=== PATIENT | male | born 1960 | race Caucasian/White ===

== ENCOUNTER 2020-05-26 15:59 | Outpatient (REF) | payer OTHER, SELFPAY ==
[2020-05-26 21:00] LABS: Glucose 78 mg/dL (74-106)
[2020-06-10 16:50] LABS: Hepatitis C Ab w Rflx HCV PCR Negative (Negative)
== END 2020-05-26 16:19 ==
LOC: NCHCN 15:59
PROVIDERS: PCP Internal Medicine; Visit Provider Internal Medicine
DX: Z00.00 Encounter for general adult medical examination without abnormal findings (principal); Z13.1 Encounter for screening for diabetes mellitus; Z11.59 Encounter for screening for other viral diseases
CPT/HCPCS: 82947; 86803

== ENCOUNTER 2021-09-10 15:13 | Outpatient (REF) | payer OTHER, SELFPAY ==
[2021-09-13 10:30] LABS: HBs Antibody, Quant <3.1 mIU/mL (See Note); Hepatitis B Surface Ab Negative (See Note)
[2021-09-13 11:15] LABS: Measles IgG Antibody Negative (See Note)
[2021-09-13 11:18] LABS: Mumps Antibody IgG Positive (See Note)
[2021-09-13 11:20] LABS: Rubella IgG Ab (UVM) Positive (See Note)
[2021-09-13 11:54] LABS: Hep A Total Ab w Rflx IgM Negative (Negative)
== END 2021-09-10 15:14 | disposition home or self-care (01) ==
LOC: NCHCN 15:13
PROVIDERS: PCP Internal Medicine; Visit Provider Nurse Practitioner Family
DX: Z00.00 Encounter for general adult medical examination without abnormal findings (principal)
CPT/HCPCS: 86706; 86709; 86735; 86762; 86765

== ENCOUNTER 2022-07-14 09:20 | Outpatient (CLI) | payer OTHER, SELFPAY ==
--- NOTE | 2022-07-14 10:40 | DI.RAD_ITS ---
Exam(s) XR SHOULDER LT COMPLETE 2+V EXAM: XR SHOULDER LT COMPLETE 2+V CLINICAL HISTORY: LT SHOULDER JOINT PAIN M25.512. TECHNIQUE: 2D digital imaging was performed. COMPARISON: No exams were available for comparison FINDINGS: Four views: No evidence of fracture or dislocation or abnormal soft tissue calcifications. Subacromial space is not diminished. There are no obvious degenerative changes in the glenohumeral and AC joints. Bone d ensity normal. No osseous lesions. No os acromiale. Ipsilateral clavicle intact. IMPRESSION: No significant osseous findings left shoulder. DATA REPOSITORY: RADIATION DOSE DELIVERED:
== END 2022-07-14 09:40 ==
LOC: DI 09:22
PROVIDERS: PCP Internal Medicine; Visit Provider Family Medicine
DX: M25.512 Pain in left shoulder (principal)
CPT/HCPCS: 73030

== ENCOUNTER 2022-11-08 09:35 | Outpatient (REF) | payer OTHER, SELFPAY ==
--- OUTSIDE RECORDS SUMMARY | 2022-11-08 09:40 | XMS_ITS | Continuity of Care Document ---
Author Name Unknown Organization [facility] Address [address] [place] [address] Care Team Providers Care Slab Polisher Name Role Phone Tom Molina Primary Care Physician Encounter [facility] NBR [id number] Date(s): 10/11/22 - 10/11/22 [facility] [address] [place] [address]- [place] Discharge Disposition: Home Allergies, Adverse Reactions, Alerts Substance Reaction Severity Status penicillin Unknown Moderate Active iodine Unknown Moderate Active PDM GG Unknown Moderate Active Mold Unknown Moderate Active Dust Unknown Moderate Active Assessment and Plan Future Appointments Problem List No Known Problems Social History Social History Type Response Tobacco Never tobacco user T obacco Use:. Sex Male Patient Care team information Care Team Personnel Name: Tom Molina Position: No Access Member Role: Primary Care Physician Address: Address: [address] Care Team Related Persons Name: SANDY JASON Address: Home [address] [place], [place] [id number] Name: SANDY JASON Address: Home [address] [place], [place] [id number]
--- OUTSIDE RECORDS SUMMARY | 2022-11-08 09:40 | XMS_ITS | Continuity of Care Document ---
Author Name Unknown Organization [facility] Address [address] [place] [address] Care Team Providers Care Pantograph Machine Set Up Operator Name Role Phone Marcrosemary Tom Hargrove Primary Care Physician Encounter [facility] FIN NBR [id number] Date(s): 09/29/22 - 09/29/22 [facility] [address] [place], [place] [email or web address] Encounter Diagnosis Left carpal tunnel syndrome(Discharge Diagnosis) - 09/29/22 Cubital tunnel syndrome on left(Discharge Diagnosis) - 09/29/22 Discharge Disposition: Home or Self Care Attending Physician: Oleksandr Will MD Allergies, Adverse Reactions, Alerts Substance Reaction Severity Status penicillin Unknown Moderate Active iodine Unknown Moderate Active PDM GG Unknown Moderate Active Mold Unknown Moderate Active Dust Unknown Moderate Active Functional Status 09/29/22 Other exposure to Infectious Disease Non e Medications ibuprofen 200 mg oral tablet QID, 1 Unknown, 0 Refill(s) Start Date: 09/29/22 Status: Ordered Motrin IB 200 mg oral capsule QID, 1 Unknown, 0 Refill(s) Start Date: 09/29/22 Status: Ordered Problem List Condition Confirmation Course Effective Dates Status Health St [facility] Informant Carpal tunnel syndrome Confirmed Active Vital Signs Most recent to oldest [Reference Range]: 1 Peripheral Pulse Rate [60-100 bpm] 68 bp m (09/29/22 1:27 PM) Blood Pressure [90-140/60-90 mmHg] 148/7 2mmHg *HI* (09/29/22 1:27 PM) Weight 77.11 kg (09/29/22 1:27 PM) Weight Measured (lbs) 169.998 lb (09/29/22 1:27 PM) Height 175.25 cm (09/29/22 1:27 PM) Height/Length Measured (inches) 69 inch (09/29/22 1:27 PM) BSA Measured 1.94 m2 (09/29/22 1:27 PM) Body Mass Index 25.11 kg/m2 (09/29/22 1:27 PM) Social History Social History Type Response Tobacco Never tobacco user T obacco Use:. Sex Male Hospital Discharge Instructions Follow Up Care 08/30/2022 11:37:41 With:Surgery Address: When: Unknown Physician Outpatient Note * Oleksandr Will MD: PERFORM Event Display: Office Clinic Note Physician Authored Date: [id number] BRITTANY JASON [place] :1960 Age:61 years Sex:Male Visit Date:09/29/2022 Primary Care Physician: Tom Molina Chief Complaint LEFT ARM PAIN History of Present Illness Please send a copy this note to Oriana Reese APRN. ?? 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 ??He is seen today for the evaluation of left hand numbness and tingling involving the radial 3 digits greater than the ulnar 2 digits.?? He has also dealt with??finger stiffness and pain when his hand is numb.?? He has??increased symptoms with cold weather. ??He has tried a wrist brace??which he has not found to be especially helpful. ??He has been performing exercises without relief. ??He states that his symptoms have progressed to the point that at times it will interfere with fine dexterity??and increment manager strength. ??He states that driving or using his tractor very much exacerbates his symptoms.?? His hand has beenwaking him at night. ??He has not found anti-inflammatories to be helpful for this.?? Of note, the patient is status post right wrist carpal tunnel release in 2014 with complete resolution of his symptoms. Review of Systems Review of systems is significant for??congestion, otitis, a history of tobacco use,??hyperlipidemia, arthralgias, skin lesions, and left upper extremity numbness and tingling. Physical Exam Vitals & Measurements HR:??68??(Peripheral)?? BP:??148/72?? SpO2:??98%?? HT:??175.25??cm?? WT:??77.11??kg?? BMI:??25.11?? Pain Score:??3?? BSA:??1.94?? Left upper extremity demonstrates decreased sensation to light touch over the radial 3 digits of the hand. ??No significant evidence of thenar or hypothenar eminence atrophy is??present.?? Range of motion of the wrist and hand is full and painless. ??Phalen's test and compression test are positive??and reproduce numbness and tingling to the radial 3 digits of the hand. ?? The patient's left elbow demonstrates no evidence of swelling or effusion. ??Range of motion of the elbow is full and painless. ??No evidence of ulnar nerve instability is present on terminal flexion.?? Tinel's sign is intermittently positive??about the cubital tunnel. ??There is no tenderness ab out the cubital tunnel.?? Flexion test is positive after approximately 30 seconds. Assessment/Plan 1.??Left carpal tunnel syndrome??G56.02 2.??Cubital tunnel syndrome on left??G56.22 The patient demonstrates evidence of left upper extremity numbness and tingling??secondary to moderate cubital tunnel syndrome and mild carpal tunnel syndrome in the setting of likely tenosynovitis that is accounting for the pain and aching about the wrist.?? The treatment options were discussed with the patient who has undergone a nonoperative course without relief. ??He??states that??despite the EMG findings of the carpal tunnel syndrome being mild in the cubital tunnel syndrome being moderate, the numbness, tingling, and pain that radiates to his radial 3 digits is much more problematic??and affects his activities more.?? The patient opted to proceed with surgical management. ??The procedure of left wrist carpal tunnel release with tenosynovectomy, and left cubital tunnel release with possible ulnar nerve transposition was described in detail to the patient as well as the associated risks, benefits, alternatives, possible complications, and postoperative course. ??The patient verbalized understanding and all questions were answered. ?? We went over use of narcotics postoperatively. ??We will use the smallest dose for the shortest period of time for their acute postoperative pain only. ??This will be in addition to icing, Tylenol, physical therapy, and bracing. ??We will obtain consent and do a risk assessment tool. ??We will alsoneed to check the PDMP as needed. ?? I personally reviewed the patient's referral, outside consultation notes, previous radiographic images and results, and relevant tests. ?? Thank you for the courtesy of this referral. Follow Up Instructions With When Contact Information Surgery Additional Instructions: Problem List/Past Medical History Ongoing Carpal tunnel syndrome Historical No qualifying data Medications ibuprofen 200 mg oral tablet, QID Motrin IB 200 mg oral capsule, QID Allergies Dust??(Unknown) Mold??(Unknown) PDM GG??(Unknown) iodine??(Unknown) penicillin??(Unknown) Social History Electronic Cigarette/Vaping Electronic Cigarette Use: Never. Tobacco Never tobacco user Tobacco Use:. Diagnostic Results Diagnostic Study Interpretation: EMG of the patient's left upper extremity performed on 08/08/[address] Priti Hubbard??demonstrates??moderate??cubital tunnel syndrome at the elbow and mild carpal tunnel syndrome at the wrist. Electronically Signed on 09/29/22 02:11 PM Oleksandr Will MD Patient Care team information Care Team Personnel Name: Tom Molina Position: No Access Member Role: Primary Care Physician Address: Address: [address] [address]- Care Team Related Persons Name: SANDY JASON Address: Home [address] [place], [place] [id number]
--- OUTSIDE RECORDS SUMMARY | 2022-11-08 09:40 | XMS_ITS | Continuity of Care Document ---
Author Name Unknown Organization [facility] Address [address] [place] [address] Care Team Providers Care Holter Scanning Technician Name Role Phone ALISSABeena JULIA Hargrove Primary Care Physician Encounter [facility] NBR [id number] Date(s): 11/03/22 - 11/03/22 [facility] [address] [place], [place] [address] Encounter Diagnosis Cubital tunnel syndrome on left(Discharge Diagnosis) - 11/03/22 Left carpal tunnel syndrome(Discharge Diagnosis) - 11/03/22 Discharge Disposition: Home or Self Care Attending Physician: NORRIS Avelar Allergies, Adverse Reactions, Alerts Substance Reaction Severity Status penicillin 1 Moderate Active shellfish Stomach upset Mild Active iodine Rash Moderate Active PDM GG Unknown Moderate Active Mold Unknown Moderate Active Dust Unknown Moderate Active 1showed up on allergy test Assessment and Plan Future Appointments Functional Status 11/03/22 Other exposure to Infectious Disease Non e Medications cyclobenzaprine 5 mg oral tablet 20 EA, 0 Refill(s) Start Date: 11/03/22 Status: Ordered oxyCODONE 5 mg oral tablet 20 EA, 0 Refill(s) Start Date: 11/03/22 Status: Ordered Phenergan 25 mg oral tablet 5 EA, 0 Refill(s) Start Date: 11/03/22 Status: Ordered Problem List Condition Confirmation Course Effective Dates Status Health St [facility] Informant GERD - Gastro-esophageal reflux disease Confirmed Active Numbness 1 Confirmed Active Serous otitis media Confirmed Active Tinnitus Confirmed Active 1left hand Procedures Procedure Date Related Diagnosis Body Site Status Carpal Tunnel Release (Left) 1 10/26/22 Completed Arthroscopy of shoulder C ompleted Carpal tunnel release Com pleted Cataract surgery of both eyes Completed Procedure on wound 2 Comp leted 1auto-populated from documented surgical case 2farm accident right hip and bilat leg wound repair also R arm fx Vital Signs Most recent to oldest [Reference Range]: 1 Peripheral Pulse Rate [60-100 bpm] 65 bp m (11/03/22 9:10 AM) Blood Pressure [90-140/60-90 mmHg] 130/7 0mmHg (11/03/22 9:10 AM) Weight 77.11 kg (11/03/22 9:10 AM) Weight Measured (lbs) 169.998 lb (11/03/22 9:10 AM) Height 172.72 cm (11/03/22 9:10 AM) Height/Length Measured (inches) 68 inch (11/03/22 9:10 AM) BSA Measured 1.92 m2 (11/03/22 9:10 AM) Body Mass Index 25.85 kg/m2 (11/03/22 9:10 AM) Social History Social History Type Response Tobacco Never tobacco user T obacco Use:. Sex Male Physician Outpatient Note * NORRIS Avelar: PERFORM Event Display: Office Clinic Note Physician Authored Date: [id number] BRITTANY JASON :1960 Age:61 years Sex:Male Visit Date:11/03/2022 Primary Care Physician: JULIA MCGREGOR Chief Complaint LEFT WRIST\ELBOW History of Present Illness The patient comes in today??status post surgery on 10/26/2022.?? He had a left open carpal tunnel release with tenosynovectomy and cubital tunnel release.?? He does work at [employer] and is hoping to returnto work with light duty restrictions.?? His numbness is improved in his hand. ??His hand is a little bit stiff and swollen.?He is not in need of any refills. ??He stopped taking Tylenol several days ago.?The patient denies any fevers, chills, chest pain, shortness of breath, numbness or tingling.?? Review of Systems The HPI is negative Physical Exam Vitals & Measurements HR:??65??(Peripheral)?? BP:??130/70?? SpO2:??99%?? HT:??172.72??cm?? WT:??77.11??kg?? BMI:??25.85?? BSA:??1.92?? General: Alert and oriented x3, pleasant cooperative, in no acute distress, appears to be their stated age, is generally fit appearing.? Left elbow:??His incision is well approximated, clean and dry without any signs of bleeding or discharge. ??He is lacking several degrees of full flexion and extension due to stiffness.?? His lefthand has some edema. ??His incision is well approximated with mild gapping about the distal aspect.??No active bleeding or discharge. ??No signs of infection.?? Range of motion of his digits is full although stiff.?? Skin distally is pink warm and dry. ??Sensation to light touch in all of his digits is intact. Assessment/Plan 1.??Cubital tunnel syndrome on left??G56.22 2.??Left carpal tunnel syndrome??G56.02 Patient is doing well status post the aforementioned procedure. ??I will give him a prescribed homeexercise program from [employer] that he can start up on.?? 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 These work restrictions will be in place until??otherwise??stated.?? We will see him back in 6 weeks for follow-up. Problem List/Past Medical History Ongoing GERD - Gastro-esophageal reflux disease Numbness Serous otitis media Tinnitus Historical No qualifying data Procedure/Surgical History ???Carpal Tunnel Release (Left) (10/26/2022)???Arthroscopy of shoulder???Carpal tunnel release???Cataract surgery of both eyes???Procedure on wound Medications cyclobenzaprine 5 mg oral tablet oxyCODONE 5 mg oral tablet Phenergan 25 mg oral tablet Allergies Dust??(Unknown) Mold??(Unknown) PDM GG??(Unknown) iodine??(Rash) penicillin shellfish??(Stomach upset) Social History Alcohol Current, 1-2 times per month Electronic Cigarette/Vaping Electronic Cigarette Use: Never. Substance Use Never Tobacco Never tobacco user Tobacco Use:. Electronically Signed on 11/03/22 10:16 AM NORRIS Avelar Oleksandr Will MD Patient Care team information Care Team Personnel Name: JULIA MCGREGOR Position: No Access Member Role: Primary Care Physician Address: Address: [address] Care Team Related Persons Name: SANDY JASON Address: Home [address] [place], [place] [id number] Name: SANDY JASON Address: Home [address] [place], [place] [id number]
--- OUTSIDE RECORDS SUMMARY | 2022-11-08 09:40 | XMS_ITS | Continuity of Care Document ---
Author Name Unknown Organization [facility] Address [address] [place] [id number] Care Team Providers Care Concrete Polisher Name Role Phone JULIA MCGREGOR Primary Care Physician [phone] Encounter [facility] NBR [id number] Date(s): 10/26/22 - 10/26/[address] [address] Encounter Diagnosis Left carpal tunnel syndrome(Discharge Diagnosis) - 10/12/22 Cubital tunnel syndrome on left(Discharge Diagnosis) - 10/12/22 Discharge Disposition: Home f/u External Provider Attending Physician: Oleksandr Will MD Admitting Physician: Oleksandr Will MD Referring Physician: Oleksandr Will MD Allergies, Adverse Reactions, Alerts Substance Reaction Severity Status penicillin 1 Moderate Active shellfish Stomach upset Mild Active iodine Rash Moderate Active PDM GG Unknown Moderate Active Mold Unknown Moderate Active Dust Unknown Moderate Active 1showed up on allergy test Assessment and Plan Future Appointments Functional Status 10/26/22 Anti-Embolism Device Activity: In place Anti-Embolism Site Condition: No complic ations Orthopedic/Preventive Devices Sling, Splint 10/26/22 Family Member Travel History No recent t ravel Recent Travel History No recent travel Other exposure to Infectious Disease Non e Medications No Known Medications Problem List Condition Confirmation Course Effective Dates [...] Most recent to oldest [Reference Range]: 1 2 3 Temperature Temporal Artery [36-38 Deg C] 36.4 Deg C (10/26/22 3:15 PM) 36.1 Deg C (10/26/22 1:47 PM) 36.8 Deg C (10/26/22 10:18 AM) Temperature Temporal Artery (DegF) [97.3-100 Deg F] 97.52 Deg F (10/26/22 3:15 PM) 96.98 Deg F *LOW* (10/26/22 1:47 PM) Apical Heart Rate [60-100 bpm] 57 bpm *LOW* (10/26/22 2:00 PM) 55 bpm *LOW* (10/26/22 1:50 PM) 58 bpm *LOW* (10/26/22 1:47 PM) Peripheral Pulse Rate [60-100 bpm] 61 bpm (10/26/22 2:59 PM) 58 bpm *LOW* (10/26/22 2:49 PM) 59 bpm *LOW* (10/26/22 2:32 PM) Respiratory Rate [12-24 br/min] 12 br/min (10/26/22 2:00 PM) 13 br/min (10/26/22 1:50 PM) 14 br/min (10/26/22 1:47 PM) Blood Pressure [90-140/60-90 mmHg] 120/73mmHg (10/26/22 2:59 PM) 121/90mmHg (10/26/22 2:49 PM) 130/79mmHg (10/26/22 2:32 PM) Mean Arterial Pressure, Cuff [65-140 mmHg] 89 mmHg (10/26/22 2:59 PM) 100 mmHg (10/26/22 2:49 PM) 96 mmHg (10/26/22 2:32 PM) Mean Arterial Pressure Cuff 88 mmHg (10/26/22 2:59 PM) 100 mmHg (10/26/22 2:49 PM) 94 mmHg (10/26/22 2:32 PM) Weight 77.000 kg (10/19/22 5:12 PM) Weight Dosing 77.000 kg (10/19/22 5:12 PM) Height 173.000 cm (10/19/22 5:12 PM) Height/Length Dosing 173.000 cm (10/19/22 5:12 PM) Social History Social History Type Response Tobacco Never tobacco user T obacco Use:. Sex Male Discharge instructions * Event Display: Discharge Instructions History and physical note * Event Display: History and Physical Update * Event Display: History and Physical Patient Care team information Care Team Personnel Name: JULIA MCGREGOR Position: No Access Member Role: Primary Care Physician Address: Address: [place] [address]- Care Team Related Persons Name: SANDY JASON Address: [address] [place], [place] [id number] Name: SANDY JASON Address: [place] [address] [place], [place] [id number]
[2022-11-08 15:09] LABS: ALT 45 U/L (16-63); AST 16 U/L (15-37); Calculated LDL 230 mg/dL (<100); Cholesterol 324 mg/dL (<200); Glucose 104 mg/dL (74-106); HDL Cholesterol 62 mg/dL (40-60); Triglyceride 160 mg/dL (<150)
== END 2022-11-08 09:36 | disposition home or self-care (01) ==
LOC: NCHCN 09:35
PROVIDERS: PCP Family Medicine; Visit Provider Family Medicine
DX: Z00.00 Encounter for general adult medical examination without abnormal findings (principal); E78.5 Hyperlipidemia, unspecified
CPT/HCPCS: 80061; 82947; 84450; 84460

== ENCOUNTER 2023-12-20 11:00 | Outpatient (REF) | payer OTHER, SELFPAY ==
[2023-12-20 17:00] LABS: ALT 61 U/L (16-63); AST 19 U/L (15-37); Albumin 4.4 g/dL (3.4-5.0); Alkaline Phosphatase 70 U/L (46-116); Anion Gap 7.5 mmol/L (3-11); BUN 13 mg/dL (7-18); Bilirubin, Total 0.7 mg/dL (0.2-1.0); CO2 29.5 mmol/L (21.0-32.0); Calcium 9.7 mg/dL (8.5-10.1); Chloride 103 mmol/L (98-107); Estimated GFR 85.63 (mL/min/1.73m2); Glucose 103 mg/dL (74-106); Potassium 5.4 mmol/L (3.5-5.1); Sodium 140 mmol/L (136-145)
== END 2023-12-20 11:01 | disposition home or self-care (01) ==
LOC: NCHCN 11:00
PROVIDERS: PCP Family Medicine; Visit Provider Nurse Practitioner Family
DX: E78.5 Hyperlipidemia, unspecified (principal)
CPT/HCPCS: 80053

== ENCOUNTER 2024-07-11 10:29 | Emergency (ER) | payer OTHER, BC, SELFPAY ==
--- NOTE | 2024-07-11 10:30 | RT.EKG_ITS ---
APPROVED REPORT Exam: Resting ECG Reason for Exam: chest pain Patient Location: E HR:73 bpm ECG Measurements Heart Rate 73 AXIS OR 139 P 87 QRSd 94 QRS -30 QT 370 T 13 QTc 409 Conclusion Sinus rhythm...normal P axis, V-rate 60- 99 Left axis deviation...QRS axis (-30,-90)
[2024-07-11 10:35] VITALS: BP 151/86; PULSE 68; RESP 20; TEMP 36.2; O2SAT 98
--- NOTE | 2024-07-11 10:45 | DI.CT_ITS ---
Exam(s) CT CHEST WO EXAM: CT CHEST WO CLINICAL HISTORY: fall, anterior chest and upper back pain. TECHNIQUE: Multi planar reconstructions were performed. CONTRAST MATERIAL: None COMPARISON: No exams were available for comparison FINDINGS: CHEST: LUNGS: There is no evidence of lung contusion, infiltrates, pleural effusions, nor pneumothorax. MEDIASTINUM: No evidence of sternal fracture nor mediastinal hematoma. Incidentally noted is a promi nent taller than wider nodule in the left thyroid lobe. Should undergo ultrasound.There is no hilar nor mediastinal adenopathy. CARDIAC: Heart size is normal. There is no pericardial effusion.Caliber of the thoracic aorta is wit hin normal limits. VISUALIZED UPPER ABDOMEN:No significant findings. OSSEOUS: No acute fractures identified in the ribs and sternum and there are no vertebral fractures.. IMPRESSION: 1. No acute trauma sequelae noted in the chest on this noninfused study. 2. Incidentally noted is a prominent nodule a possible concern in the left thyroid lobe. Follow-up u ltrasound is recommended. Findings and recommendations called by myself to ER physician 07/11/2024 at 11:45 a.m. RADIATION DOSE DELIVERED: 285.09mGy.cm Total DLP DATA REPOSITORY: All CT scans at this facility are submitted to the National Radiology Data Registry (NRDR) Dose Index Registry (DIR) with the [employer] (ACR). RADIATION OPTIMIZATION: All CT scans at this facility use at least one of these dose optimization te chniques: automated exposure control; mA and/or kV adjustment per patient size (includes targeted exa ms where dose is matched to clinical indication); or iterative reconstruction.
--- NOTE | 2024-07-11 10:54 | ED.GENADUL_ITS ---
Discharge Plan Disposition Patient Disposition: Home Condition: Stable Discharge Details Chief Complaint: Chest Pain Clinical Impression: Back contusion, Chest wall contusion Primary Care Provider: Tom Molina ED Provider: Abisai Arrieta Home Meds and New Rx's Prescriptions: No Action No Known Home Meds Discharge Instructions Additional Instructions: Your CAT scan did not show any concerning findings. This is likely bone bruising that is causing her pain You did have a thyroid nodule seen on the CT, you should follow-up with your primary care provider and have an ultrasound done as an outpatient If you feel more ill or have severe worsening pain return to the emergency department for reevaluation HPI General Mode of arrival: ambulatory . Date/Time Provider Initiated Documentation: 07/11/24 10:33 . Limitations to Documentation: no limitations . Information obtained by: patient . History of Present Illness 63 year old M presents to the emergency department with the chief complaint of Anterior chest and upper back pain status post fall a week ago, described as moderate, Quality is described as aching, and is localized to the chest and back. Patient started experiencing this week(s) (1) and it has been constant. No relieving factors improve symptom(s), No exacerbating factors reported . Patient notes no other symptoms.. Patient did receive the following treatments prior to arrival, none Related Data Home Medications ?Medication ?Instructions ?Recorded ?Confirmed Unknown [No Known Home Meds] 08/08/22 07/11/24 Allergies Allergy/AdvReac Type Severity Reaction Status Date / Time iodine Allergy Unknown Verified 07/11/24 10:41 Penicillins Allergy Unknown Verified 07/11/24 10:41 shellfish derived Allergy Unknown Verified 07/11/24 10:41 oat mold spore Allergy Unknown Uncoded 07/11/24 10:41 PDM GG Allergy Unknown Uncoded 07/11/24 10:41 dust mold AdvReac Unknown Uncoded 07/11/24 10:41 General Stated Complaint: Chest Pain ARNIE: 3 Review of Systems All systems reviewed & are unremarkable except as noted in HPI and below Constitutional Constitutional: Denies chills, Denies fever(s) and Denies weakness Cardiovascular Cardiovascular: Denies dyspnea Respiratory Respiratory: Denies cough and Denies dyspnea Gastrointestinal Gastrointestinal: Denies abdominal pain, Denies nausea and Denies vomiting Neurologic Neurologic: Denies weakness Exam Chest Chest: tenderness GI Palpation: soft and nontender Back/Spine/Pelvis Back: no CVA tenderness Thoracic/Lumbar Spine: thoracic spinal tenderness and No lumbar spinal tenderness Course Vital Signs Vital signs: Vital Signs Temperature 36.2 C L 07/11/24 10:35 Pulse 68 07/11/24 10:35 Respiratory Rate 20 07/11/24 10:35 Blood Pressure 151/86 H 07/11/24 10:35 Pulse Oximetry 98 07/11/24 10:35 Temperature 36.2 C L 07/11/24 10:35 Temperature Source Rectal 07/11/24 10:35 Pulse 68 07/11/24 10:35 Respiratory Rate 20 07/11/24 10:35 Blood Pressure 151/86 H 07/11/24 10:35 Blood Pressure Position Sitting 07/11/24 10:35 Pulse Oximetry 98 07/11/24 10:35 Oxygen Delivery Method Room Air 07/11/24 10:35 Oxygen Flow Rate 0 07/11/24 10:35 Pain Level 8 07/11/24 10:35 Lab/Test Results Lab/Test Results: Laboratory Tests Range/Units 07/11/24 07/11/24 07/11/24 10:34 10:35 11:34 WBC Cancelled RBC Cancelled Hgb Cancelled Hct Cancelled MCV Cancelled MCH Cancelled MCHC Cancelled RDW Cancelled Plt Count Cancelled MPV Cancelled Immature Gran % Cancelled Neutrophils % Cancelled Band Neutrophils % Cancelled Lymphocytes % Cancelled Atypical Lymphs % Cancelled Monocytes % Cancelled Eosinophils % Cancelled Basophils % Cancelled Metamyelocytes % Cancelled Myelocytes % Cancelled Promyelocytes % Cancelled Other Cells % Cancelled Nucleated RBC % Cancelled Absolute Neutrophils Cancelled Absolute Lymphocytes Cancelled Absolute Monocytes Cancelled Absolute Eosinophils Cancelled Absolute Basophils Cancelled RBC Morphology Cancelled Polychromasia Cancelled Hypochromasia Cancelled Poikilocytosis Cancelled Basophilic Stippling Cancelled Anisocytosis Cancelled Microcytosis Cancelled Macrocytosis Cancelled Spherocytes Cancelled Tear Drop Cells Cancelled Ovalocytes Cancelled Stomatocytes Cancelled [place] Bodies Cancelled Lennie Cells/Echinocytes Cancelled Acanthocytes (Spur) Cancelled Schistocytes Cancelled Sodium Cancelled Potassium Cancelled Chloride Cancelled Carbon Dioxide Cancelled Anion Gap Cancelled BUN Cancelled Creatinine Cancelled Est GFR (CKD-EPI 2020) Cancelled Glucose Cancelled Calcium Cancelled Magnesium Cancelled Total Bilirubin Cancelled AST Cancelled ALT Cancelled Alkaline Phosphatase Cancelled Troponin I Cancelled Cancelled Total Protein Cancelled Albumin Cancelled Lipase Cancelled Medical Decision Making 63-year-old male with no significant past medical history comes in with 1 week of anterior chest and upper back pain status post fall. He says he was stepping off a truck and stopped on ice and fell on the ground. He did not hit his head or have loss of consciousness. He has had persistent anterior chest and upper back pain since so came here for an evaluation. He is well-appearing on exam ambulating with a normal gait. He has a soft nontender abdomen. He has no signs of trauma to the head and has no headaches. No midline C-spine or L-spine tenderness. He has upper T-spine tenderness and left lateral and right lateral upper back tenderness without palpable visible deformities. He is sternal tenderness and also tenderness with palpation to the left and right anterior chest tenderness. He has no abdominal tenderness. I suspect contusions but given the pain will obtain CT to evaluate for sternal versus rib fractures versus spinous process fractures. CT shows no acute findings, he does have a thyroid nodule which I informed him of and he should have a follow-up outpatient ultrasound. He is stable and has no new tenderness and is requesting discharge and I feel this is reasonable given negative CT. He will follow-up with his PCP and return precautions given Differential Diagnosis Differential Diagnosis: Fracture, contusion ECG Data Attestation: I personally reviewed and interpreted this ECG (s) as follows: Prior ECG tracings: not available for review Interpretation: sinus rate of 73 pr 139 no stemi Quality:SDOH Health Related Social Needs: No Data to Display [facility] All Active Problems (Updated 07/11/24 @ 11:49 by Abisai Arrieta MD) Chest wall contusion (Acute) Back contusion (Acute) Cubital tunnel syndrome on left (Acute) Left carpal tunnel syndrome (Acute) Medical History Arthralgia Hand numbness Health examination of defined subpopulation Hyperlipidemia Pain, joint, shoulder, left Skin lesion Social History Smoking/Tobacco Use Status: Former Tobacco Use Smoking risk assessment performed?: Yes
[2024-07-11 11:53] VITALS: BP 118/90; PULSE 65; RESP 16; O2SAT 96
== END 2024-07-11 11:59 | disposition home or self-care (01) ==
PROVIDERS: Emergency Provider Emergency Medicine; PCP Family Medicine
DX: S20.222A Contusion of left back wall of thorax, initial encounter (principal); S20.212A Contusion of left front wall of thorax, initial encounter; E04.1 Nontoxic single thyroid nodule; E78.5 Hyperlipidemia, unspecified; Z87.891 Personal history of nicotine dependence; W00.0XXA Fall on same level due to ice and snow, initial encounter; Y93.01 Activity, walking, marching and hiking; Y92.89 Other specified places as the place of occurrence of the external cause
CPT/HCPCS: 71250; 80053; 83690; 93005; 99285; 83735; 84484; 85025; 93010; 99284

== ENCOUNTER 2024-11-11 12:17 | Outpatient (REF) | payer OTHER, SELFPAY ==
[2024-11-11 16:05] LABS: Hemoglobin A1C 5.8 % (<5.7)
[2024-11-11 17:13] LABS: ALT 52 U/L (16-63); AST 24 U/L (15-37); Albumin 4.2 g/dL (3.4-5.0); Alkaline Phosphatase 71 U/L (46-116); Anion Gap 9.1 mmol/L (3-11); BUN 16 mg/dL (7-18); Bilirubin, Total 0.5 mg/dL (0.2-1.0); CO2 26.9 mmol/L (21.0-32.0); CREATININE 0.9 mg/dL (0.70-1.30); Calculated LDL 193 mg/dL (<100); Chloride 104 mmol/L (98-107); Cholesterol 294 mg/dL (<200); Estimated GFR 96.57 (mL/min/1.73m2); Glucose 92 mg/dL (74-106); HDL Cholesterol 59 mg/dL (>or=40); Potassium 4.4 mmol/L (3.5-5.1); Sodium 140 mmol/L (136-145); Total Protein 7.6 g/dL (6.4-8.2); Triglyceride 212 mg/dL (<150)
== END 2024-11-11 12:18 | disposition home or self-care (01) ==
LOC: NCHCN 12:17
PROVIDERS: PCP Family Medicine; Visit Provider Nurse Practitioner Family
DX: Z00.00 Encounter for general adult medical examination without abnormal findings (principal); E78.5 Hyperlipidemia, unspecified
CPT/HCPCS: 80053; 80061; 83036

== ENCOUNTER 2025-01-08 10:06 | Outpatient (REF) | payer OTHER, SELFPAY ==
[2025-01-08 15:09] LABS: ALT 50 U/L (16-63); AST 20 U/L (15-37); Albumin 4.1 g/dL (3.4-5.0); Alkaline Phosphatase 53 U/L (46-116); Anion Gap 8.2 mmol/L (3-11); BUN 16 mg/dL (7-18); Bilirubin, Total 0.5 mg/dL (0.2-1.0); CO2 26.8 mmol/L (21.0-32.0); Calcium 8.7 mg/dL (8.5-10.1); Calculated LDL 96 mg/dL (<100); Chloride 106 mmol/L (98-107); Cholesterol 180 mg/dL (<200); Estimated GFR 100.06 (mL/min/1.73m2); Glucose 119 mg/dL (74-106); HDL Cholesterol 57 mg/dL (>or=40); Potassium 3.8 mmol/L (3.5-5.1); Sodium 141 mmol/L (136-145); Total Protein 7.0 g/dL (6.4-8.2); Triglyceride 138 mg/dL (<150)
== END 2025-01-08 10:07 | disposition home or self-care (01) ==
LOC: NCHCN 10:06
PROVIDERS: PCP Family Medicine; Visit Provider Nurse Practitioner Family
DX: E78.5 Hyperlipidemia, unspecified (principal); Z00.00 Encounter for general adult medical examination without abnormal findings
CPT/HCPCS: 80053; 80061